=== PATIENT | female | born 1975 | race Hispanic/Latino ===

== ENCOUNTER 2017-08-05 12:53 | Emergency (ER) | payer OTHER ==
[2017-08-05 15:35] VITALS: BMI 23.0
--- NOTE | 2017-08-05 18:32 | OBHP ---
Datetime: 08/05/2017 13:48 IP Adm Impression: , intrauterine ; No Active Labor IP Admit Plan: Observation/Evaluation; Discharge home Admit Comment, IP Provider: 42 yo IUP 36.4 weeks presents today c/o leaking of fluid since y after she sneezed, also reports 1 painful ctx this morning. no VB, +FM. Patient had fever ye 100.4 F for which she took tylenol, also cough, little son has common cold. No nausea, vomiti ng, abd or chest pain, sob, no urinary symptoms. PNC: PCP Dr May. PObH: SAB x3, NVD x2 FT. PGynH: none PMH: none PSH: none FMH: denies Meds: vits NKDA. Denies tobacco,etoh or drugs use. VS: wnl Speculum: no pooling, -nitrazine. Pelvic: closed. Normal bedside US. A/P: 42 yo IUP 36.4 weeks,no active labor Observe Speculum exam wnl discharge home Set up appt with PCP 1-2 days. 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 Aura Isabel PGY1 The patient was ssen with the resident and I agree with the note, Bedside sono michele 10, SSE no vagi nal pooling nitrazine neg, patient instructed to f/u with [facility] 24-48 hours for repeat sono. labor prec autions kick counts. return to ER if leaking persisits Pelvic Type - PN: Adequate Extremities - PN: Normal Abdomen - PN: Normal Back - PN: Not Done Breast - PN: Not Done Lungs - PN: Normal Heart - PN: Normal Thyroid - PN: Not Done Neurologic - PN: Normal HEENT - PN: Normal General - PN: Normal FHR - Baseline A Provider: 150 Membranes, Provider: Intact Pool Provider: Negative Nitrazine Provider: Negative EGA AdmitDate IP: 36.1 Vital Signs Provider: Reviewed IP Chief Complaint: Suspected ruptured membranes NICHD Variability Prov Fetus A: Moderate 6-25bpm NICHD Accel Fetus A IP Provider: [id number] FHR Category Provider Fetus A: Category I NICHD Decel Fetus A IP Provider: None Dilatation, Provider: closed Genitourinary Exam: Not Done DTRs - PN: Normal
[2017-08-05 20:29] VITALS: BP 115/68; PULSE 86; RESP 20; TEMP 97.1
== END 2017-08-05 14:10 | disposition home or self-care (01) ==
LOC: H.EROB2 12:53 → H.EROB 12:53 → H.EROB2 14:10
DX: O47.03 False labor before 37 completed weeks of gestation, third trimester (principal); Z3A.36 36 weeks gestation of pregnancy; O26.93 Pregnancy related conditions, unspecified, third trimester; R10.2 Pelvic and perineal pain; O34.60 Maternal care for abnormality of vagina, unspecified trimester; N89.8 Other specified noninflammatory disorders of vagina

== ENCOUNTER 2017-08-07 09:42 | Inpatient (IN) | payer OTHER ==
[2017-08-07] MEDS ORDERED: Oxytocin 30 UNITS in Sodium Chloride 0.9% 500 ML IV SCH (11:30)
[2017-08-07 11:37] VITALS: RESP 18
--- NOTE | 2017-08-07 12:38 | OBADHP ---
Datetime: 08/07/2017 12:13 Admit Comment, IP Provider: 42 yo at 36+3 wks sent from [facility] u/s for induction of labor for o ligohydramnios, SALLY 2 Will start induction w/ cervidil NST reactive, GBS unknown, will treat w/ Penicillin when she is in labor H_P dictated, "[id number]" (ES) Extremities - PN: Normal Abdomen - PN: Normal Lungs - PN: Normal Heart - PN: Normal Neurologic - PN: Normal General - PN: Normal FHR - Baseline A Provider: 140's Membranes, Provider: Intact Vital Signs Provider: Reviewed; Within Normal Limits IP Chief Complaint: Scheduled induction of labor NICHD Variability Prov Fetus A: Moderate 6-25bpm NICHD Accel Fetus A IP Provider: [id number] FHR Category Provider Fetus A: Category I NICHD Decel Fetus A IP Provider: None Dilatation, Provider: 1 Effacement, Provider: 0 Station, Provider: -3 Genitourinary Exam: Normal EGA AdmitDate IP: 36.3 IP Adm Impression: , intrauterine IP Admit Plan: Initiate labor induction protocol Datetime: 08/05/2017 13:48 Pelvic Type - PN: Adequate Back - PN: Not Done Breast - PN: Not Done Thyroid - PN: Not Done HEENT - PN: Normal Pool Provider: Negative Nitrazine Provider: Negative DTRs - PN: Normal
[2017-08-07 13:37] LABS: BASO # 0.1 K/uL (0.0-0.2); BASO % 0.7 % (0.0-2.0); EOS # 0.1 K/uL (0.0-0.7); EOS % 0.6 % (0.0-4.0); HEMOGLOBIN 8.4 g/dL (12.0-16.0); LYMPH # 1.4 K/uL (1.0-4.3); LYMPH % 16.1 % (20.0-40.0); MEAN CELL VOLUME 84.4 fl (81.0-99.0); MEAN CORPUSCULAR HEMOGLOBIN 27.6 pg (27.0-31.0); MEAN CORPUSCULAR HGB CONC 32.7 g/dL (33.0-37.0); MEAN PLATELET VOLUME 9.4 fl (7.2-11.7); MONO # 0.7 K/uL (0.0-0.8); MONO % 7.8 % (0.0-10.0); NEUT # 6.3 K/uL (1.8-7.0); NEUT % 74.8 % (50.0-75.0); NRBC % 0.1 % (0.0-0.0); RBC 3.04 Mil/uL (3.80-5.20); RED CELL DISTRIBUTION WIDTH 14.4 % (11.5-14.5); WHITE BLOOD COUNT 8.5 K/uL (4.8-10.8)
--- NOTE | 2017-08-07 15:46 | HP ---
HISTORY OF PRESENT ILLNESS: This is a 42-year-old G7, P 2-0-4-2 at 36 weeks and 3 days with an EDC of 09/01/2017 by LMP consistent with 8-week ultrasound, who was sent from [facility] ultrasound for delivery due to oligohydramnios. SALLY was 2. Biophysical was 8/8. The patient received her care with [facility] with Dr. May. This is complicated by the fact that she was advanced maternal age and she is positive for sickle cell trait. Per the patient's , he was tested and he was negative for sickle cell trait. Of note, the patient reports that she feels leaking every time she sneezes for the last couple of weeks. The patient denies vaginal bleeding. She reports she had a contraction the other night. She reports movement. She reports that she is just getting over a cold for which she was taking Tylenol p.r.n. and she reports that she feels pelvic pressure for the last 2 weeks. She received Tdap on 06/24/2017 and flu shot on 05/06/2017. PAST MEDICAL HISTORY: Healthy. PAST SURGICAL HISTORY: Breast augmentation and calves augmentation in 2012. MEDICATIONS: Tylenol 500 p.r.n. for her cold, vitamins on and off. ALLERIGES: NO KNOWN DRUG ALLERGIES. FAMILY HISTORY: Mother with diabetes. SOCIAL HISTORY: The patient denies tobacco, alcohol and illicit drug use. OB HISTORY: The patient underwent a vaginal delivery in 08/1998 and she underwent a vaginal delivery in 01/2014. The patient has had 3 terminations and 1 spontaneous . 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 She has a history of Chlamydia at 19 years old and she reports a history of abnormal Pap smears for which she has never needed treatment. Pt reports that she had a colpo in 2014. LABS: Blood type O positive. Antibody screen negative. [facility] [employer] 4 screen was negative. Hemoglobin electrophoresis pattern shows hemoglobin A and hemoglobin S consistent with sickle cell trait. Urine culture was negative. Gonorrhea and Chlamydia were negative. RPR nonreactive. Rubella positive. Hepatitis B surface antigen negative. Panorama was low risk, female fetus. First trimester screen was within range. Maternal serum AFP screen negative. On 06/03/2017, 1-hour Glucola was 105. On 06/24/2017, HIV was negative. RPR was nonreactive. Group B Strep was done on 08/05/2017 and is not back yet. In the record, pap in 07/2016 ([place]) negative per pt. PHYSICAL EXAMINATION: VITAL SIGNS: Afebrile. Vital signs stable. GENERAL: The patient appears comfortable, lying in bed. HEART: Regular rate and rhythm. LUNGS: Clear to auscultation bilaterally. EXTREMITIES: Nontender. No edema. ABDOMEN: Soft, nontender, gravid. Positive bowel sounds. EXTERNAL MONITORING: Baseline is in the 140s with moderate variability and positive accelerations. Tocodynamometer quiet. Vaginal exam is 1 cm, long and -3 station at 11:08 a.m. ASSESSMENT AND PLAN: This is a 42-year-old 7, para 2-0-4-2 at 36 weeks and 3 days, who was sent from [facility] ultrasound to be delivered for oligohydramnios with an amniotic fluid index of 2, GBS unknown. We will start penicillin when the patient starts to go into labor. NST reactive. Will start induction with Cervidil. Nicol Mcclain MD MTDD
[2017-08-07] MEDS: Lactated Ringer's 1,000 ML IV SCH (17:56)
[2017-08-07] MEDS ORDERED: Nasal Spray(Ocean spray) NAS PRN (19:47)
[2017-08-07] MEDS ORDERED: Lactated Ringer's 1,000 ML IV SCH (22:30)
[2017-08-08] MEDS: Lactated Ringer's 1,000 ML IV SCH ×2 (01:35→01:40)
[2017-08-08] MEDS ORDERED: Bupivacaine HCl 0.25% PF (10 ml) Inj ONE (01:38)
[2017-08-08] MEDS ORDERED: Fentanyl/Bupivacaine HCl 0 ML EPI ONE (01:38)
[2017-08-08] MEDS ORDERED: Oxycodone/Acetaminophen 5/325 mg Tab PO PRN ×3 (02:44→04:08)
--- NOTE | 2017-08-08 03:13 | OBDS ---
DELIVERY PERSONNEL Delivery Doctor: Juan Daniel Pretty MD It Trainer: Gwendolyn Bullard RN Anesthesiologist: Ed Correa MD Resident: Dr. Wesley MATERNAL INFORMATION Delivery Anesthesia: Epidural Medications in Delivery: Pitocin 30 mu/500 mL Estimated Blood Loss (ml): 200 Placenta Cultured: No Maternal Complications: None Provider Comments: Pt progressed to complete and pushed to deliver a viable female infant in KHANG pos ition through clear fluid at 02:31am. Apgars 9 and 9. Wt 2420gms, 5#5.4. Infant placed on mother's abdomen. Mouth and nares bulb-suctioned. Cord doubly clamped. FOB cut the cord. Cord blood colle cted. Placenta delivered spontaneously intact w/ a 3vc at 02:34am. Vagina and perineum intact. Pt and baby tolerated the procedure well. EBL 200mL LABOR SUMMARY EDC: 09/01/2017 00:00 No. Babies in Womb: 1 Attempted: No Labor Anesthesia: Epidural LABOR INFORMATION Reason for Induction: Oligohydramnios Onset of Labor: 08/08/2017 01:45 Complete Dilatation: 08/08/2017 02:18 Cervical Ripening Agents: Cervidil Other Ripening Agents: Cervidil placed by dr pretty Oxytocin: Induction Group B Beta Strep: Done, Result Unknown Antibiotics # of Doses: 0 Antibiotics Time of Last Dose: 0 Steroids Given: None Reason Steroids Not Administered: Not Applicable MEMBRANES Membranes Rupture Method: Artificial Rupture of Membranes: 08/08/2017 02:18 Amniotic Fluid Color: Clear Amniotic Fluid Amount: Small Amniotic Fluid Odor: None STAGES OF LABOR Stage 1 hrs: 0 Stage 1 min: 33 VAGINAL DELIVERY Episiotomy: None Laceration Extension: N/A Laceration Type: None Laceration Repair: No Initial Vag Sponge Count: 10
[2017-08-08] MEDS ORDERED: Nasal Spray(Ocean spray) NAS PRN ×2 (03:59→04:08)
[2017-08-08 08:24] LABS: HEMOGLOBIN 8.5 g/dL (12.0-16.0); MEAN CELL VOLUME 82.9 fl (81.0-99.0); MEAN CORPUSCULAR HEMOGLOBIN 28.1 pg (27.0-31.0); MEAN CORPUSCULAR HGB CONC 33.8 g/dL (33.0-37.0); RBC 3.02 Mil/uL (3.80-5.20); RED CELL DISTRIBUTION WIDTH 13.9 % (11.5-14.5); WHITE BLOOD COUNT 10.6 K/uL (4.8-10.8)
--- NOTE | 2017-08-08 13:27 | OBPPN ---
Datetime: 08/08/2017 13:18 PP Pain Prov: Within normal limits PP Nausea Prov: Denies PP Flatus Prov: Yes PP BM Prov: No PP Breasts Prov: Normal PP Heart Prov: Normal PP Lungs Prov: Normal PP Abdomen/Uterus Prov: Normal PP Extremities Prov: Normal PP Progress Prov: Normal PP Comments Phys Exam Prov: pox rz 98% skin:pale PP Impression Prov: Normal progression PP Plan Prov: Continue present management PP Progress Note Prov: ppd0 s: c/o sob when she gets oob. denies chest pain. states she was given rx for Fe but did not take i n preg. pt states she has not slept since delivery p: cbc tomorrow IV Fe pt advised if she continues w/ sob w/ ambulation may need transfusion IP PP Procedures: None Vital Signs Provider PP: Reviewed
[2017-08-09 07:23] LABS: BASO % 0.1 % (0.0-2.0); EOS # 0.1 K/uL (0.0-0.7); EOS % 0.7 % (0.0-4.0); LYMPH # 2.1 K/uL (1.0-4.3); LYMPH % 17.3 % (20.0-40.0); MEAN CELL VOLUME 84.1 fl (81.0-99.0); MEAN CORPUSCULAR HEMOGLOBIN 27.6 pg (27.0-31.0); MEAN CORPUSCULAR HGB CONC 32.8 g/dL (33.0-37.0); MEAN PLATELET VOLUME 8.8 fl (7.2-11.7); MONO # 0.6 K/uL (0.0-0.8); MONO % 5.2 % (0.0-10.0); NEUT # 9.2 K/uL (1.8-7.0); NEUT % 76.7 % (50.0-75.0); RBC 2.89 Mil/uL (3.80-5.20); RED CELL DISTRIBUTION WIDTH 14.4 % (11.5-14.5)
--- NOTE | 2017-08-09 08:19 | OBPPN ---
Datetime: 08/09/2017 08:13 PP Pain Prov: Within normal limits PP Abdomen/Uterus Prov: Normal PP Lochia Prov: Normal PP Vulva/Perineum Prov: Not Done PP Impression Prov: Normal progression PP Plan Prov: Continue present management PP Progress Note Prov: PPD 1 s/p , doing well, bottle feeding Pt may be discharged home later today if baby can go home Vital Signs Provider PP: Reviewed
--- NOTE | 2017-08-09 15:48 | OBDCSUM ---
Datetime: 08/09/2017 15:04 Discharged to, Provider: Home Follow up at, Provider: Dr. May Disch Instr Activity: Normal activity; Bedrest; May Shower Disch Instr Diet: Regular Discharge Instructions, Provider: Routine instructions given Discharge Diagnosis, Provider: Term Delivered Discharge Time: 08/09/2017 15:45 Follow up in weeks, Provider: 6 weeks Disch Referrals: None Contraception discussed, Prov: No Disch Activity Restrictions: No exercising; No lifting; No sexual activity; Nothing in vagina - Inte rcourse, tampons, douche
[2017-08-09 22:05] VITALS: BP 120/73; PULSE 94; TEMP 98.4; O2SAT 99
== END 2017-08-09 17:00 | disposition home or self-care (01) | DRG 775 ==
LOC: H.L&D 09:42 → H.EROB2 09:42 → H.L&D 11:19 → H.OB/GYN 08-08 04:55
PROVIDERS: ADMIT Obstetrics & Gynecology; ATTEND Obstetrics & Gynecology
PROC: 10E0XZZ Delivery of Products of Conception, External Approach (ICD-10-PCS; principal; 2017-08-07)
PROC: 4A1HXCZ Monitoring of Products of Conception, Cardiac Rate, External Approach (ICD-10-PCS; 2017-08-07)
DX: O41.03X0 Oligohydramnios, third trimester, not applicable or unspecified (principal); D57.3 Sickle-cell trait; Z37.0 Single live birth; O99.02 Anemia complicating childbirth; Z3A.36 36 weeks gestation of pregnancy; Z83.3 Family history of diabetes mellitus